=== PATIENT | female | born 1990 ===

== ENCOUNTER → 2017-12-24 | Outpatient (CLI) | payer OTHER ==
[2017-12-25 09:35] LABS: Source Cervix
== END | disposition home or self-care (01) ==
LOC: LAB SHORT 14:51 → LAB 14:51
PROVIDERS: Advanced Practice Midwife
DX: Z01.419 Encounter for gynecological examination (general) (routine) without abnormal findings (principal)
CPT/HCPCS: G0123

== ENCOUNTER → 2019-11-09 | Outpatient (CLI) | payer OTHER | END | disposition home or self-care (01) | LOC: LAB SHORT 14:15 → LAB 14:15 | DX: Z34.93 Encounter for supervision of normal pregnancy, unspecified, third trimester (principal) | CPT/HCPCS: 87081; 87653 ==

== ENCOUNTER 2019-12-04 02:05 | Inpatient (IN) | payer OTHER ==
[~2019-12-04] VITALS: Ht 165.1 cm; Wt 78.0 kg
[2019-12-04] MEDS ORDERED: PRENATAL TABLE1 EAC2 PO (04:24)
[2019-12-04] MEDS ORDERED: DOCU100 PO (04:24)
[2019-12-04] MEDS ORDERED: FAMO10 PO (04:25)
[2019-12-04 05:44] LABS: BASOPHILS ABSOLUTE AUTO 0.03 K/mm3 (0.00-0.23); BASOPHILS PERCENT AUTO 0 % (0-2); EOSINOPHILS ABSOLUTE AUTO 0.01 K/mm3 (0.00-0.68); EOSINOPHILS PERCENT AUTO 0 % (0-6); Hematocrit 38.2 % (33.0-51.0); Hemoglobin 12.4 g/dL (11.5-16.0); IMMATURE GRAN ABSOLUTE AUTO 0.07 K/mm3 (0.00-0.10); IMMATURE GRAN PERCENT AUTO 1 % (0-1); LYMPHOCYTES ABSOLUTE AUTO 1.26 K/mm3 (0.84-5.20); LYMPHOCYTES PERCENT AUTO 9 % (21-46); MONOCYTES ABSOLUTE AUTO 0.46 K/mm3 (0.16-1.47); MONOCYTES PERCENT AUTO 3 % (4-13); Mean Corpuscular HGB 30.6 pg (26.0-34.0); Mean Corpuscular HGB Conc 32.5 g/dL (31.5-36.5); Mean Corpuscular Volume 94 fL (80-100); Mean Platelet Volume 10.9 fL (9.1-12.4); NEUTROPHILS ABSOLUTE AUTO 12.22 K/mm3 (1.96-9.15); NEUTROPHILS PERCENT AUTO 87 % (41-73); Platelet Count 231 K/mm3 (150-400); RDW Coefficient Variation 13.6 % (11.7-14.2); RDW Standard Deviation 46.7 fL (35.1-46.3); Red Blood Cell Count 4.05 M/mm3 (3.80-5.20); White Blood Cell Count 14.05 K/mm3 (4.00-11.30)
--- NOTE | 2019-12-04 20:40 | NUR ---
PT, , S.O., AND BELONGINGS MOVED TO NEW ROOM 129 FOR REMAINDER OF STAY
--- NOTE | 2019-12-05 06:03 | NUR ---
AM LABS DRAWN FROM LEFT AC WITH BUTTERFLY NEEDLE PER HOSPITAL PROTOCOL
[2019-12-05 06:07] LABS: Hematocrit 32.6 % (33.0-51.0); Hemoglobin 10.7 g/dL (11.5-16.0); Mean Corpuscular HGB 30.7 pg (26.0-34.0); Mean Corpuscular HGB Conc 32.8 g/dL (31.5-36.5); Mean Corpuscular Volume 94 fL (80-100); Mean Platelet Volume 11.1 fL (9.1-12.4); Platelet Count 206 K/mm3 (150-400); RDW Coefficient Variation 13.8 % (11.7-14.2); RDW Standard Deviation 46.9 fL (35.1-46.3); Red Blood Cell Count 3.48 M/mm3 (3.80-5.20); White Blood Cell Count 14.27 K/mm3 (4.00-11.30)
--- NOTE | 2019-12-05 08:20 | NUR ---
MOM DOING WELL, MEDICATEE WITH MOTRIN. PLANNING TO DC HOME TODAY. NO ISSUES. BRF WELL. PT'S AT SIDE, SUPPPORTIVE.
[2019-12-05] MEDS ORDERED: IBUP800 PO (10:11)
--- NOTE | 2019-12-05 10:52 | NUR ---
RN ROUNDED TO HELP WITH . PT REPORTS BRF HAS BEEN GOING WELL. DENIES PAIN WITH BRF AFTER INITIAL LATCH ON. INSTRUCT PT IN BOOKLET AND BROCHURE OF WHAT TO EXPECT WITH BRF AND CHANGES IN NB DURING THE FIRST WEEK OF LIFE. INSTRUCT/DEMO HAND EXPRESSION OF COLOSTRUM, WHAT TO EXPECT WITH ENGORGMENT, AND NIPPLE SHAPE AFTER FEEDINGS. PT VERBALIZED UNDERSTANDING AND DENIES ANY FURTHER QUESTIONS OR CONCERNS.
--- NOTE | 2019-12-05 14:35 | NUR ---
DC HOME WITH NB, BANDS MATCHED. ALL DC TEACHING DONE. AMBULATED OUT.
== END 2019-12-05 14:35 | disposition home or self-care (01) | DRG 807 ==
LOC: OBS 02:05 → BC 02:09 → OBS 05:04 → BC 05:06
PROVIDERS: Advanced Practice Midwife; ADMIT Obstetrics & Gynecology
PROC: 10E0XZZ Delivery of Products of Conception, External Approach (ICD-10-PCS; principal; 2019-12-04)
PROC: 10907ZC Drainage of Amniotic Fluid, Therapeutic from Products of Conception, Via Natural or Artificial Opening (ICD-10-PCS; 2019-12-04)
PROC: 3E0R3BZ Introduction of Anesthetic Agent into Spinal Canal, Percutaneous Approach (ICD-10-PCS; 2019-12-04)
DX: O77.0 Labor and delivery complicated by meconium in amniotic fluid (principal); Z37.0 Single live birth; O76 Abnormality in fetal heart rate and rhythm complicating labor and delivery; Z3A.39 39 weeks gestation of pregnancy
CPT/HCPCS: 36415; 51702; 59025; 81003; 85025; 85027; 87210; A9270; J2001; J2590; J3010; J7120

== ENCOUNTER → 2021-03-31 | Outpatient (CLI) | payer OTHER ==
[~2021-03-31] MED LIST: DOCU100 PO; FAMO10 PO; IBUP800 PO; PRENATAL TABLE1 EAC2 PO
[2021-04-01 12:12] LABS: HPV 16 Negative (Negative); HPV 18 Negative (Negative); HPV OTHER HR TYPES Negative (Negative)
== END | disposition home or self-care (01) ==
LOC: LAB 14:19 → LAB SHORT 14:19
PROVIDERS: Advanced Practice Midwife
DX: Z01.419 Encounter for gynecological examination (general) (routine) without abnormal findings (principal)
CPT/HCPCS: 87624; G0123